=== PATIENT | female | born 1930 | race African-American/Black ===

== ENCOUNTER 2016-12-05 18:06 | Inpatient (IN) | payer MEDICARE, OTHER ==
[~2016-12-05] VITALS: Ht 165.1 cm; Wt 76.7 kg
[~2016-12-05 18:06] MED LIST: AMLO5TAB4 PO; ASPI-1079 PO; ASPI-867 PO; ATOR20TA PO; CLOP75TA2 PO; FURO80TA3 PO; NEBI10TA2 PO; NEBI5TAB3 PO; OMEP20CA10 PO; POTA20TA82 PO; SIMV40TA5 PO; TRAM50TA3 PO
[2016-12-05 18:44] LABS: BASOPHILS % 0.6 % (0.0-2.0); EOSINOPHILS % 1.5 % (0.0-5.0); HEMATOCRIT. 35.6 % (36.0-48.0); HEMOGLOBIN. 12.4 g/dL (12.0-16.0); LYMPHOCYTES % 32.2 % (20.0-50.0); MEAN CORPUSCULAR HEMOGLOBIN 30.8 pg (28.0-32.0); MEAN CORPUSCULAR VOLUME 88.6 fL (81.0-99.0); MEAN PLATELET VOLUME 8.1 fl (7.4-10.4); MONOCYTES % 6.4 % (2.0-8.0); NEUTROPHILS % 59.3 % (40.0-76.0); PLATELET 184 x1000/uL (130-400); RED BLOOD CELL COUNT 4.02 mill/uL (4.2-5.4)
[2016-12-05] MEDS ORDERED: ACETAMINOPHEN 325MG TABLET PO ONE (18:45)
[2016-12-05 18:51] LABS: INR 1.1
[2016-12-05 18:56] LABS: CARBON DIOXIDE 26 mEq/L (21-32); CHLORIDE 102 mEq/L (98-107)
[2016-12-05 18:59] LABS: TROPONIN I < 0.02 ng/mL (0.00-0.04)
[2016-12-06] VITALS (9 sets, daily range): BP systolic 112–163; BP diastolic 55–69
[2016-12-06] MEDS ORDERED: CLOPIDOGREL 75MG TABLET PO SCH (09:30)
[2016-12-06] MEDS ORDERED: TRAMADOL 50MG TABLET PO PRN (09:30)
[2016-12-06] MEDS ORDERED: MAGNESIUM/ALUMINUM HYDROXIDE/SIMETHICONE 30ML UDC PO PRN (09:30)
[2016-12-06] MEDS ORDERED: DOCUSATE SODIUM 100MG CAPSULE PO PRN (09:30)
[2016-12-06] MEDS ORDERED: ONDANSETRON HCL 4MG/2ML VIAL IV PRN (09:30)
[2016-12-06] MEDS ORDERED: NITROGLYCERIN 0.4MG TABLET SL SL PRN (09:30)
[2016-12-06] MEDS ORDERED: IPRATROPIUM/ALBUTEROL 0.5-3(2.5)MG/3ML NEB INH PRN (09:30)
[2016-12-06] MEDS ORDERED: CLONIDINE 0.1MG TABLET PO PRN (09:30)
[2016-12-06] MEDS ORDERED: DIPHENHYDRAMINE 50MG/ML VIAL IV PRN (09:30)
[2016-12-06] MEDS ORDERED: ASPIRIN 325MG EC TABLET PO SCH (09:30)
[2016-12-06] MEDS ORDERED: NA PHOS,M-B/NA PHOS,DI-BA ENEMA 118ML PR PRN (09:30)
[2016-12-06] MEDS: ZINC SULFATE 220 MG ( 50 ) CAPSULE PO SCH (12:03)
[2016-12-06] MEDS: ENOXAPARIN 30MG/0.3ML SYR SUBCUT SCH (12:04)
[2016-12-06] MEDS: PANTOPRAZOLE SODIUM 40 MG/VIAL IV SCH (12:04)
[2016-12-06] MEDS ORDERED: HYDRALAZINE 20MG/ML VIAL IV PRN (13:15)
[2016-12-06 13:25] LABS: CLARITY URINE CLOUDY (CLEAR); COLOR URINE YELLOW (YELLOW); GLUCOSE URINE NEGATIVE (NEGATIVE); KETONES URINE NEGATIVE (NEGATIVE); LEUKOCYTE ESTERASE URINE 3+ (NEGATIVE); NITRITE URINE NEGATIVE (NEGATIVE); OCCULT BLOOD URINE 2+ (NEGATIVE); PH URINE 6.5 (4.5-8.0); PROTEIN URINE TRACE (NEGATIVE); SPECIFIC GRAVITY URINE 1.017 (1.005-1.030); UROBILINOGEN URINE 0.2 E.U./dL (0.2-1.0)
[2016-12-06 17:39] LABS: CREATINE KINASE 105 IU/L (26-192); CREATINE KINASE MB FRACTION 0.6 ng/mL (0.5-3.6); TROPONIN I < 0.02 ng/mL (0.00-0.04)
[2016-12-06] MEDS: AMLODIPINE 2.5MG TABLET PO SCH ×2 (17:55→21:35)
[2016-12-06] MEDS ORDERED: LEVOFLOXACIN 500MG PREMIX 100 ML IV NR (20:00)
[2016-12-06] MEDS: ACETAMINOPHEN 325MG TABLET PO PRN (20:23)
[2016-12-06] MEDS ORDERED: ZOLPIDEM TARTRATE 5MG TABLET PO PRN (21:00)
[2016-12-06] MEDS: ASCORBIC ACID 500 MG TABLET PO SCH (21:35)
[2016-12-06 23:53] LABS: CREATINE KINASE 105 IU/L (26-192); CREATINE KINASE MB FRACTION 0.9 ng/mL (0.5-3.6); TROPONIN I < 0.02 ng/mL (0.00-0.04)
[2016-12-07] VITALS (8 sets, daily range): BP systolic 102–174; BP diastolic 42–82
[2016-12-07 06:41] LABS: BASOPHILS % 0.3 % (0.0-2.0); EOSINOPHILS % 1.8 % (0.0-5.0); HEMOGLOBIN. 11.8 g/dL (12.0-16.0); LYMPHOCYTES % 29.1 % (20.0-50.0); MEAN CORPUSCULAR HEMOGLOBIN 30.9 pg (28.0-32.0); MEAN PLATELET VOLUME 8.3 fl (7.4-10.4); MONOCYTES % 8.4 % (2.0-8.0); NEUTROPHILS % 60.4 % (40.0-76.0); PLATELET 177 x1000/uL (130-400); RED BLOOD CELL COUNT 3.82 mill/uL (4.2-5.4); RED CELL DISTRIBUTION WIDTH 13.6 % (11.6-14.6)
[2016-12-07] MEDS: ASPIRIN 81MG EC TABLET PO SCH (08:45)
[2016-12-07] MEDS: ASCORBIC ACID 500 MG TABLET PO SCH ×2 (08:45→20:55)
[2016-12-07] MEDS: ZINC SULFATE 220 MG ( 50 ) CAPSULE PO SCH (08:45)
[2016-12-07] MEDS: ENOXAPARIN 30MG/0.3ML SYR SUBCUT SCH (08:45)
[2016-12-07] MEDS: PANTOPRAZOLE SODIUM 40 MG/VIAL IV SCH (08:45)
[2016-12-07] MEDS: AMLODIPINE 2.5MG TABLET PO SCH ×2 (08:45→20:56)
[2016-12-07] MEDS ORDERED: LEVOFLOXACIN 250MG PREMIX 50 ML IV SCH (18:00)
[2016-12-07] MEDS: ACETAMINOPHEN 325MG TABLET PO PRN (19:16)
[2016-12-08] VITALS: BP_SYST 127; BP_SYST 133; BP_DIAS 79; BP_DIAS 84
[2016-12-08 04:00] VITALS: BP 140/66
[2016-12-08 08:27] VITALS: BP_SYST 141; BP_SYST 150; BP_SYST 160; BP_DIAS 54; BP_DIAS 64; BP_DIAS 68
[2016-12-08] MEDS: PANTOPRAZOLE SODIUM 40 MG/VIAL IV SCH (09:23)
[2016-12-08] MEDS: ZINC SULFATE 220 MG ( 50 ) CAPSULE PO SCH (09:24)
[2016-12-08] MEDS: ASCORBIC ACID 500 MG TABLET PO SCH (09:24)
[2016-12-08] MEDS: AMLODIPINE 2.5MG TABLET PO SCH (09:25)
[2016-12-08] MEDS: ENOXAPARIN 30MG/0.3ML SYR SUBCUT SCH (09:25)
[2016-12-08] MEDS: ASPIRIN 81MG EC TABLET PO SCH (09:25)
[2016-12-08 12:09] VITALS: BP 126/51
[2016-12-08 16:00] VITALS: BP 139/53
[2016-12-09] MEDS ORDERED: FAMOTIDINE 20MG TABLET PO SCH (09:00)
== END 2016-12-08 16:53 | disposition home or self-care (01) | DRG 689 ==
LOC: ER 18:10 → 6WST 18:37 → EDBEDREQ 22:21 → ENRESERV 23:02
PROVIDERS: ADMIT Internal Medicine; ATTEND Internal Medicine
DX: N39.0 Urinary tract infection, site not specified (principal); N17.0 Acute kidney failure with tubular necrosis; E44.1 Mild protein-calorie malnutrition; R55 Syncope and collapse; E11.22 Type 2 diabetes mellitus with diabetic chronic kidney disease; E78.00 Pure hypercholesterolemia, unspecified; E78.5 Hyperlipidemia, unspecified; F03.90 Unspecified dementia, unspecified severity, without behavioral disturbance, psychotic disturbance, mood disturbance, and anxiety; I12.9 Hypertensive chronic kidney disease with stage 1 through stage 4 chronic kidney disease, or unspecified chronic kidney disease; I25.10 Atherosclerotic heart disease of native coronary artery without angina pectoris; N18.9 Chronic kidney disease, unspecified; Z79.82 Long term (current) use of aspirin; Z79.899 Other long term (current) drug therapy; Z68.28 Body mass index [BMI] 28.0-28.9, adult
CPT/HCPCS: 36415; 70450; 71010; 73590; 80048; 80053; 80061; 81001; 82550; 82553; 83036; 83735; 83880; 84484; 85025; 85610; 87086; 93005; 93306; 93880; 93970; 97161; 97166; 99285; C1893; C9113; J1650; J1956; J7050

== ENCOUNTER 2017-07-16 10:42 | Emergency (ER) | payer MEDICARE, MEDICAID, OTHER ==
[~2017-07-16] VITALS: Ht 165.1 cm; Wt 75.0 kg
[~2017-07-16 10:42] MED LIST changes: +AMLO2.5T45 PO; -AMLO5TAB4 PO; +AMLO5TAB88 PO; -ASPI-1079 PO; -ASPI-867 PO; +ASPI-986 PO; +CLOP75TA16 PO; -CLOP75TA2 PO; -FURO80TA3 PO; +HYDR-523 PO; +KDUR20 PO; +MELO-106 PO; -NEBI10TA2 PO; -OMEP20CA10 PO; -POTA20TA82 PO; -SIMV40TA5 PO; -TRAM50TA3 PO
[2017-07-16 12:27] LABS: BASOPHILS % 0.6 % (0.0-2.0); HEMATOCRIT. 37.7 % (36.0-48.0); HEMOGLOBIN. 12.4 g/dL (12.0-16.0); LYMPHOCYTES % 18.1 % (20.0-50.0); MEAN CORPUSCULAR HEMOGLOBIN 29.3 pg (28.0-32.0); MEAN CORPUSCULAR VOLUME 89.4 fL (81.0-99.0); MEAN PLATELET VOLUME 7.6 fl (7.4-10.4); MONOCYTES % 5.7 % (2.0-8.0); NEUTROPHILS % 74.6 % (40.0-76.0); PLATELET 250 x1000/uL (130-400); RED BLOOD CELL COUNT 4.22 mill/uL (4.2-5.4); RED CELL DISTRIBUTION WIDTH 14.6 % (11.6-14.6)
[2017-07-16 12:39] LABS: CHLORIDE 105 mEq/L (98-107)
[2017-07-16 12:44] LABS: TROPONIN I 0.05 ng/mL (0.00-0.04)
[2017-07-16] MEDS: SODIUM CHLORIDE 0.9% 1,000 ML IV ONE (13:42)
[2017-07-16 16:24] LABS: CLARITY URINE CLOUDY (CLEAR); COLOR URINE YELLOW (YELLOW); KETONES URINE NEGATIVE (NEGATIVE); LEUKOCYTE ESTERASE URINE TRACE (NEGATIVE); NITRITE URINE POSITIVE (NEGATIVE); OCCULT BLOOD URINE 2+ (NEGATIVE); PROTEIN URINE 1+ (NEGATIVE); SPECIFIC GRAVITY URINE 1.016 (1.005-1.030); UROBILINOGEN URINE 0.2 E.U./dL (0.2-1.0)
[2017-07-16] MEDS: LEVOFLOXACIN 500MG TABLET PO ONE (18:27)
[2017-07-16 18:52] VITALS: BP 154/97
[2017-07-19] MEDS ORDERED: DONE5TAB7 PO (16:39)
== END 2017-07-16 19:25 | disposition home or self-care (01) ==
LOC: ER 12:15
DX: F03.90 Unspecified dementia, unspecified severity, without behavioral disturbance, psychotic disturbance, mood disturbance, and anxiety (principal); I10 Essential (primary) hypertension; E11.9 Type 2 diabetes mellitus without complications; Z79.82 Long term (current) use of aspirin
CPT/HCPCS: 36415; 80053; 81003; 84484; 85025; 96360; 99285; J7030